=== PATIENT | female | born 1980 | race Caucasian/White ===

== ENCOUNTER → 2016-10-18 | Outpatient (CLI) | payer BC ==
[~2016-10-18] MED LIST: IBUP-1050 PO; MELA1TAB5 PO
== END | disposition home or self-care (01) ==
LOC: C.LABBC 14:43
PROVIDERS: ATTEND Psychiatry & Neurology Neurology
DX: G25.81 Restless legs syndrome (principal)

== ENCOUNTER 2017-11-04 05:49 | Emergency (ER) | payer BC ==
[~2017-11-04] VITALS: Ht 170.2 cm; Wt 110.3 kg
[2017-11-04 05:53] VITALS: TEMP 36.7; Ht 170.2 cm; Wt 110.3 kg
[2017-11-04] MEDS ORDERED: RIZATRIPTAN BENZOATE 10 MG TAB PO STA (06:00)
[2017-11-04] MEDS ORDERED: RIZATRIPTAN BENZ (MAXALT-MLT) 10 MG TAB PO STA (06:12)
[2017-11-04] MEDS ORDERED: ONDANSETRON 4MG OD TAB ONE (06:42)
[2017-11-04] MEDS ORDERED: ONDANSETRON 4MG OD TAB PO ONE (06:45)
[2017-11-04] MEDS ORDERED: ONDANSETRON HOME PACK 4MG OD TAB PO ONE (06:45)
[2017-11-04] MEDS ORDERED: RIZA10TA18 PO (06:54)
[2017-11-04 08:05] VITALS: BP 151/91; PULSE 79; O2SAT 97
--- NOTE | 2017-11-08 02:45 | EMERGENCY ROOM VISIT NOTE ---
History First contact with patient: 06:00 Chief Complaint: HEADACHE Stated Complaint: MIGRAINE/VOMITING History of Present Illness The patient is a 37 year old female who presents to the Emergency Room with complaints of migraine for the past few hours described as throbbing, ranging in severity 7 out of 10 to the frontal region similar to prior with nausea and vomiting. Patient is out of her Maxalt. She is requesting this now. Patient denies sudden onset headache, localized weakness, fever, chills, chest pain, dyspnea, numbness, tingling, balance problems. Review of Systems An 10 system review of systems was completed with positives and pertinent negatives listed in the HPI. Past Medical/Surgical History Medical Problems: (1) Bronchitis (2) Pneumonia Migraines Family History Cancer Diabetes mellitus Heart disease Hypertension Lung disease Social History Smoking Status: Never Smoker Alcohol Use: occasionally Housing Status: lives alone Occupation Status: employed Current/Historical Medications Scheduled Rizatriptan Benzoate (Maxalt), 1 TAB PO UD Scheduled PRN Melatonin (Kp Melatonin), 6 MG PO HS PRN for Sleep Physical Exam Vital Signs Date Time Temp Pulse Resp B/P (MAP) Pulse Ox O2 Delivery O2 Flow Rate FiO2 11/04/17 08:05 79 16 151/91 97 11/04/17 05:53 36.7 84 20 150/70 100 Room Air Physical Exam VITALS: Vitals are noted on the nurse's note and reviewed by myself. Vital signs hypertensive GENERAL: Pleasant female, in no acute distress, nondiaphoretic, well-developed well-nourished. SKIN: The skin was without rashes, erythema, edema, or bruising. There is no tenting of the skin. Capillary reflex less than 2 seconds. HEAD: Normocephalic atraumatic. EARS: External auditory canals clear, tympanic membranes pearly thompson without erythema or effusion bilaterally. EYES: Pupils equal round and reactive to light and accommodation. Conjunctivae without injection, sclerae without icterus. Extraocular movements intact. NOSE: Patent, turbinates without inflammation or discharge. No sinus tenderness. MOUTH: Mucous membranes moist. Pharynx without erythema or exudate. Uvula midline. Airway patent. Tongue does not deviate. NECK: Supple without nuchal rigidity. No lymphadenopathy. No thyromegaly. Cervical spine is nontender. No JVD. HEART: Regular rate and rhythm without murmurs gallops or rubs. LUNGS: Clear to auscultation bilaterally without wheezes, rales or rhonchi. No retractions or accessory muscle use. ABDOMEN: Positive bowel sounds x 4. Normal tympanic percussion. Soft, nontender, without masses or organomegaly. Portillo sign negative. No guarding or rebound tenderness. No CVA tenderness MUSCULOSKELETAL: No muscle atrophy, erythema, or edema noted. NEURO: Patient was alert and oriented to person place and time. Normal sensation to light and sharp touch. No focal neurological deficits. Medical Decision & Procedures Medications Administered Medications (Trade) Dose Ordered Sig/Joaquin Route Start Time Stop Time Status Last Admin Dose Admin Rizatriptan Benzoate (Rizatriptan Benzoate Odt) 10 mg NOW STAT PO 11/04/17 06:12 11/04/17 06:13 DC 11/04/17 06:23 10 MG Ondansetron HCl (Zofran Odt) 4 mg STK-MED ONCE .ROUTE 11/04/17 06:42 11/04/17 06:43 DC 11/04/17 06:45 4 MG Ondansetron HCl (ZOFRAN ODT 4MG Home Pack) 1 homepack UD ONCE PO 11/04/17 06:45 11/04/17 06:46 DC 11/04/17 08:01 1 HOMEPACK ED Course Prior records/ancillary studies reviewed. Additional history obtained from EMS. Triage Nursing notes reviewed. The patient's history was concerning for headache. Differential diagnosis: Etiologies such as migraine headache, meningitis, sinusitis, CO exposure, ICH, SAH, infection, tumor, headache, sinus thrombosis, arterial dissection, as well as others were entertained. Physical examination findings: As above. Non-focal. ER treatment provided: Maxalt On reassessment the patient felt better. Diagnostics interpreted by me: Deferred This appears to be consistent with migraine. Patient has a long-standing history of this and symptoms were similar. Patient was neurovascularly and neurologically intact. She is well-appearing. She requested her Maxalt and this is given to her. She is advised to rest, stay well-hydrated follow-up family can a few days here and here sooner for headache, fevers, confusion, worsening signs or symptoms or as needed. By the evaluation outlined above emergent etiologies such as meningitis, sinusitis, CO exposure, ICH, SAH, infection, temporal arteritis, tumor, sinus thrombosis, arterial dissection, as well as others were deemed relatively unlikely. The pt informed about the findings as listed above. All questions were answered and pleased with the treatment. Return instructions were outlined and the patient was discharged in stable condition. Referral: The patient was referred back to their primary care physician for follow-up in 2 to 3 days for a recheck of the current condition. The chart was completed utilizing dotloop voice recognition software. Grammatical errors, random word insertions, pronoun errors, and incomplete sentences are an occassional consequence of this system due to software limitations, ambient noise, and hardware issues. Any formal questions or concerns about the content, text, or information contained within the body of this dictation should be directly addressed to the physician social science research assistant for clarification. Medical Decision As above Medication Reconcilliation Current Medication List: was personally reviewed by me Blood Pressure Screening Patient's blood pressure: Elevated blood pressure Blood pressure disposition: Elevated BP felt to be situational Impression Primary Impression: Migraine Departure Information Dispostion Home / Self-Care Condition GOOD Prescriptions Rizatriptan Benzoate (MAXALT) 10 Mg Tab 1 TAB PO UD for 30 Days, #9 TAB 0 Refills Prov: Anuja Malave ., JUANCHO 11/04/17 Referrals Eduard Ashley D.O. (PCP) Patient Instructions My [facility] Additional Instructions DO NOT drive, drink alcohol, operate machinery, or perform dangerous activities today. You were given medications in the ER that can affect your ability to safely function or operate a vehicle. Rest today in a quiet, peaceful, dark environment and get a full 8-10 hrs of sleep tonight. Avoid loud noises, smoke/smoking, alcohol, bright lights, stress, or physical exertion today to minimize the chance the headache may return. Continue current medications. Ibuprofen(Motrin, Advil) may be used for fever or pain. Use 600mg every six hours as needed. Take with food. Avoid using more than 2400mg in a 24 hour period. Do not use 2400mg per day for more than three consecutive days without physician direction. Prolonged inappropriate use can lead to stomach upset or ulcers. (AND/OR) Acetaminophen(Tylenol) may be used for fever or pain. Use 1000mg every six hours as needed. Avoid using more than 3000mg in a 24 hour period. Return to the ER for passing out, worsening headache, vision problems, neck stiffness/pain, fevers, vomiting, worsening of your condition, or as needed. Follow up with your primary physician and/or a neurologist in 2-3 days for a recheck of your current condition. Problem Qualifiers Primary Impression: Migraine Migraine type: without aura Status migrainosus presence: without status migrainosus Intractability: not intractable Qualified Codes: G43.009 - Migraine without aura, not intractable, without status migrainosus
== END 2017-11-04 08:07 | disposition home or self-care (01) ==
LOC: EDBD 05:49 → C.EDB 05:55
DX: G43.009 Migraine without aura, not intractable, without status migrainosus (principal); Z83.3 Family history of diabetes mellitus; Z82.49 Family history of ischemic heart disease and other diseases of the circulatory system